=== PATIENT | male | born 1940 | race Caucasian/White ===

== ENCOUNTER 2020-09-07 14:16 | Inpatient (IN) | payer MEDICARE, OTHER ==
[2020-08-31 13:31] LABS: BASOPHILS # (AUTO) 0.1 X10'3 (0-0.2); BASOPHILS % (AUTO) 1.2 % (0-1); EOSINOPHILS # (AUTO) 0.1 X10'3 (0-0.9); HEMATOCRIT 46.5 % (42.0-52.0); HEMOGLOBIN 15.7 g/dl (14.0-17.9); LYMPHOCYTES # (AUTO) 1.4 X10'3 (1.1-4.8); LYMPHOCYTES % (AUTO) 14.6 % (21-51); MEAN CORPUSCULAR HGB CONC 33.8 g/dL (33.0-36.5); MEAN CORPUSCULAR VOLUME 106.4 FL (78-98); MEAN PLATELET VOLUME 7.1 FL (7.4-10.4); MONOCYTES # (AUTO) 0.7 X10'3 (0-0.9); MONOCYTES % (AUTO) 7.3 % (2-12); NEUTROPHILS # (AUTO) 7.1 X10'3 (1.8-7.7); NEUTROPHILS % (AUTO) 75.9 % (42-75); PLATELET COUNT 290 X10'3 (140-440); RED BLOOD COUNT 4.36 X10'6 (4.70-6.10); RED CELL DISTRIBUTION WIDTH 13.9 % (11.5-14.5); WHITE BLOOD COUNT 9.3 X10'3 (4.5-11.0)
[2020-09-01 09:00] LABS: ALBUMIN 3.4 G/DL (3.4-5.0); BLOOD UREA NITROGEN 13 MG/DL (7-18); BUN/CREATININE RATIO 13.3 (5.4-32.0); CALCIUM 9.2 MG/DL (8.5-10.1); CREATININE 0.98 MG/DL (0.60-1.10); TOTAL CARBON DIOXIDE 31.4 MMOL/L (24-32); eGFR 74 ML/MIN
[2020-09-01 09:04] LABS: PRE OP INR 1.1 INR; PRE OP PROTIME 11.4 SECONDS (9.0-12.0)
[2020-09-01 09:11] LABS: PRE OP GLUCOSE 205 MG/DL (70-104)
[2020-09-01 09:14] LABS: CHLORIDE 100 MMOL/L (99-107); PRE OP ANION GAP 7 (8-16); PRE OP POTASSIUM 4.5 MMOL/L (3.4-5.1); PRE OP SODIUM 138 MMOL/L (135-145)
[~2020-09-07] VITALS: Ht 180.3 cm; Wt 146.7 kg
[2020-09-07] VITALS (14 sets, daily range): BP systolic 131–157; BP diastolic 60–86
[~2020-09-07 14:16] MED LIST: ALBU18HF2 IH; DABI150C PO; FOLI-43 PO; FURO80TA3 PO; GABA-338 PO; HYDR1TAB69 PO; LEVO75TA PO; LOP25T PO; METH2.5T55 PO; POTA10TA19 PO
[2020-09-07] MEDS ORDERED: LORazepam 0.5 MG tablet PO PRN (14:40)
[2020-09-07] MEDS ORDERED: diphenhydrAMINE 25mg capsule PO PRN (14:40)
[2020-09-07] MEDS ORDERED: APIX5TAB3 PO (15:27)
[2020-09-07] MEDS ORDERED: FURO-149 PO (15:28)
[2020-09-07] MEDS ORDERED: LEVO88TA2 PO (15:28)
[2020-09-07] MEDS ORDERED: ROSU20TA2 PO (15:30)
[2020-09-07] MEDS: normal saline 1,000 ML IV SCH ×2 (15:45→23:47)
[2020-09-07] MEDS ORDERED: LIDOcaine 1% (10mg/ml)w/preservative injection 20ml MDV ONE (16:22)
[2020-09-07] MEDS ORDERED: heparin 1,000 UNITS/NS 500ml 500 ML ONE (16:22)
[2020-09-07] MEDS ORDERED: heparin 1,000unit/ml 10ml vial 10 ML ONE (16:22)
[2020-09-07] MEDS ORDERED: iohexol 350MG/ML 100ml bottle IV ONE (16:22)
[2020-09-07] MEDS ORDERED: atropine 0.1mg/ml 10ml syringe ONE (16:53)
[2020-09-07] MEDS ORDERED: phenylephrine 10mg/ml inj. ONE (16:53)
[2020-09-07] MEDS ORDERED: DOPamine 400mg/D5W 250ml 250 ML IV ONE (16:55)
[2020-09-07] MEDS ORDERED: clopidogrel 300mg tablet ONE (17:21)
[2020-09-07] MEDS ORDERED: proCHLORperazine 10 MG/2 ml inj IV PRN (18:00)
[2020-09-07] MEDS ORDERED: [UNRECOGNIZED DRUG - OTHER] PO PRN (18:00)
[2020-09-07] MEDS ORDERED: ACETAMINOPHEN PO PRN (18:00)
[2020-09-07] MEDS ORDERED: HYDROcodone/acetaminophen 10/325mg tab PO PRN (18:00)
[2020-09-07] MEDS ORDERED: ondansetron/PF 4mg/2ml inj IV PRN (18:00)
[2020-09-07] MEDS ORDERED: HYDROcodone/acetaminophen 5mg/325mg tablet PO PRN (18:00)
[2020-09-07] MEDS ORDERED: nitroGLYCERIN 0.4mg SUBLingual tab SL PRN (18:00)
[2020-09-07] MEDS ORDERED: HYDROCODONE BIT PO PRN (18:00)
[2020-09-07] MEDS ORDERED: OXAZEpam 15mg capsule PO PRN (18:00)
[2020-09-07] MEDS ORDERED: acetaminophen 325mg tablet PO PRN (18:00)
--- NOTE | 2020-09-07 18:40 | NUR ---
Problems reprioritized. Patient report given, questions answered & plan of care reviewed with HAYDEN Jackson, pt will be going to room#3018G shortly.
--- NOTE | 2020-09-07 19:10 | NUR ---
pt in room 3013B, Bela MOHRg CDI, pt is in stable condition and in no distress at this time, HAYDEN Jackson at pt's bedside.
[2020-09-07] MEDS: apixaban 5mg tablet PO SCH (20:40)
[2020-09-07] MEDS: gabapentin 300mg capsule PO SCH (20:40)
[2020-09-08 02:00] VITALS: BP 121/69
--- NOTE | 2020-09-08 06:00 | NUR ---
Patient in room PCU 3013. I have received report from Manuel BLAKE and had the opportunity to ask questions and assume patient care. Patient awake and oriented, offers no complaints, will continue to monitor.
[2020-09-08 07:00] VITALS: BP 110/68
[2020-09-08 07:31] LABS: ALANINE AMINOTRANSFERASE 14 U/L (12-78); ALBUMIN 2.7 G/DL (3.4-5.0); ALBUMIN/GLOBULIN RATIO 0.6 (1.1-1.5); ALKALINE PHOSPHATASE 66 IU/L (46-116); ANION GAP 7 (8-16); ASPARTATE AMINO TRANSFERASE 12 U/L (10-37); BLOOD UREA NITROGEN 12 MG/DL (7-18); BUN/CREATININE RATIO 15.6 (5.4-32.0); CALCIUM 8.2 MG/DL (8.5-10.1); CHLORIDE 103 MMOL/L (99-107); CHOL/HDL RATIO 4.2 (0.00-4.99); CHOLESTEROL 190 MG/DL (0-200); CREATININE 0.77 MG/DL (0.60-1.10); GLUCOSE 126 MG/DL (70-104); HDL CHOLESTEROL 45 MG/DL (35-60); LDL CHOLESTEROL 128 MG/DL (50-100); SODIUM 140 MMOL/L (135-145); TOTAL CARBON DIOXIDE 30.2 MMOL/L (24-32); TRIGLYCERIDES 133 MG/DL (20-135); eGFR > 90 ML/MIN
[2020-09-08] MEDS ORDERED: potassium Cl 20 mEq SR tablet PO SCH (08:00)
[2020-09-08] MEDS ORDERED: atorvastatin 20mg tablet PO SCH (08:00)
[2020-09-08] MEDS ORDERED: clopidogrel 75mg tablet PO SCH (08:00)
[2020-09-08] MEDS ORDERED: folic acid 1mg tablet PO SCH (08:00)
[2020-09-08] MEDS ORDERED: furosemide 40mg tablet PO SCH (08:00)
[2020-09-08] MEDS ORDERED: levoTHYROXINE 88mcg tablet PO SCH (08:00)
[2020-09-08] MEDS: gabapentin 300mg capsule PO SCH (08:42)
[2020-09-08] MEDS: apixaban 5mg tablet PO SCH (08:42)
[2020-09-08] MEDS: normal saline 1,000 ML IV SCH (10:40)
[2020-09-08] MEDS ORDERED: OMEP-50 PO (10:58)
[2020-09-08] MEDS ORDERED: CLOP75TA34 PO (10:58)
[2020-09-08] MEDS ORDERED: furosemide 40mg tablet PO PRN (11:02)
[2020-09-08] MEDS ORDERED: potassium Cl 20 mEq SR tablet PO PRN (11:03)
--- NOTE | 2020-09-08 12:45 | NUR ---
Patient was discharged home at 1230. Patient reviewed packet prior to singing and being sent with patient. Pt was extremely rude and yelling about discharge and trying to glover the RN as I was educating him on his discharge. Patient collected all his own belongings, PIV was removed, pt removed tele monitor. Patient declined wheelchair and left via private vehicle with his .
[2020-09-09] MEDS ORDERED: levoTHYROXINE 125mcg tablet PO SCH (07:00)
== END 2020-09-08 12:29 | disposition home or self-care (01) | DRG 35 ==
LOC: SSTAY O 14:16 → ED HOLD 20:16 → PCU 3S 20:30
PROVIDERS: ADMIT Internal Medicine Interventional Cardiology; ATTEND Internal Medicine Interventional Cardiology
PROC: 037M3DZ Dilation of Right External Carotid Artery with Intraluminal Device, Percutaneous Approach (ICD-10-PCS; principal; 2020-09-07)
DX: I65.23 Occlusion and stenosis of bilateral carotid arteries (principal); Z68.42 Body mass index [BMI] 45.0-49.9, adult; I50.22 Chronic systolic (congestive) heart failure; I48.0 Paroxysmal atrial fibrillation; G47.33 Obstructive sleep apnea (adult) (pediatric); E66.01 Morbid (severe) obesity due to excess calories; E03.9 Hypothyroidism, unspecified; I27.20 Pulmonary hypertension, unspecified; I36.1 Nonrheumatic tricuspid (valve) insufficiency; I35.1 Nonrheumatic aortic (valve) insufficiency; E78.5 Hyperlipidemia, unspecified
CPT/HCPCS: 36415; 37215; 80048; 80053; 80061; 85025; 85610; 85730; 93005; A4620; C1725; C1760; C1769; C1876; C1884; C1887; C1894; G0378; J0461; J1265; J1644; J2001; J2370; J7030; Q0163; Q9967

== ENCOUNTER 2020-09-08 12:44 | Emergency (ER) | payer MEDICARE, OTHER ==
[~2020-09-08] VITALS: Ht 180.3 cm; Wt 143.2 kg
[~2020-09-08 12:44] MED LIST changes: -ALBU18HF2 IH; +APIX5TAB3 PO; +CLOP75TA34 PO; -DABI150C PO; +FURO-149 PO; -FURO80TA3 PO; -LEVO75TA PO; +LEVO88TA2 PO; -LOP25T PO; +OMEP-50 PO; +ROSU20TA2 PO
[2020-09-08 13:14] VITALS: BP 120/72
[2020-09-08] MEDS ORDERED: LIDOcaine 1% W/epiNEPHrine 1:200,000 10ml vial IJ ONE (14:55)
== END 2020-09-08 15:55 | disposition home or self-care (01) ==
LOC: ER 12:44
DX: S81.812A Laceration without foreign body, left lower leg, initial encounter (principal); I48.91 Unspecified atrial fibrillation; Z86.73 Personal history of transient ischemic attack (TIA), and cerebral infarction without residual deficits; Z98.890 Other specified postprocedural states; Z79.899 Other long term (current) drug therapy; W45.8XXA Other foreign body or object entering through skin, initial encounter; Y93.89 Activity, other specified; Y92.89 Other specified places as the place of occurrence of the external cause; Y99.8 Other external cause status
CPT/HCPCS: 12002; 12032; 99282; 99283; 99284

== ENCOUNTER 2023-10-17 12:03 | Day surgery (SDC) | payer MEDICARE, OTHER ==
[2023-10-13 11:00] LABS: BASOPHILS # (AUTO) 0.1 X10'3 (0-0.2); BASOPHILS % (AUTO) 1.1 % (0-1); EOSINOPHILS # (AUTO) 0.1 X10'3 (0-0.9); EOSINOPHILS % (AUTO) 0.8 % (0-6); HEMATOCRIT 44.7 % (42.0-52.0); HEMOGLOBIN 14.8 g/dl (14.0-17.9); LYMPHOCYTES # (AUTO) 1.5 X10'3 (1.1-4.8); LYMPHOCYTES % (AUTO) 20.3 % (21-51); MEAN CORPUSCULAR HEMOGLOBIN 34.6 PG (27.0-31.0); MEAN CORPUSCULAR VOLUME 104.7 FL (78-98); MEAN PLATELET VOLUME 6.8 FL (7.4-10.4); MONOCYTES # (AUTO) 0.4 X10'3 (0-0.9); MONOCYTES % (AUTO) 5.8 % (2-12); NEUTROPHILS # (AUTO) 5.2 X10'3 (1.8-7.7); PLATELET COUNT 224 X10'3 (140-440); RED BLOOD COUNT 4.27 X10'6 (4.70-6.10); RED CELL DISTRIBUTION WIDTH 14.5 % (11.5-14.5); WHITE BLOOD COUNT 7.3 X10'3 (4.5-11.0)
[2023-10-13 11:36] LABS: ALBUMIN 2.7 G/DL (3.4-5.0); ANION GAP 11 (8-16); BLOOD UREA NITROGEN 15 MG/DL (7-18); BUN/CREATININE RATIO 14.2 (10.0-20.0); CALCIUM 8.9 MG/DL (8.5-10.1); CHLORIDE 105 MMOL/L (99-107); CHOL/HDL RATIO 3.1 (0.00-4.99); CHOLESTEROL 147 MG/DL (0-200); CREATININE 1.06 MG/DL (0.60-1.10); GLUCOSE 158 MG/DL (70-104); HDL CHOLESTEROL 47 MG/DL (35-60); LDL CHOLESTEROL 90 MG/DL (50-100); POTASSIUM 4.1 MMOL/L (3.5-5.1); SODIUM 144 MMOL/L (135-145); TRIGLYCERIDES 89 MG/DL (20-135); eGFR 67 ML/MIN
[2023-10-13 11:49] LABS: APTT 31 SECONDS (22-32); INR 1.1 INR; PROTHROMBIN TIME 11.4 SECONDS (9.0-12.0)
[2023-10-17] VITALS (10 sets, daily range): BP systolic 113–146; BP diastolic 69–88; PULSE 78–92; RESP 14–16; TEMP 97.6; O2SAT 93–97
[~2023-10-17] VITALS: Ht 180.3 cm; Wt 123.5 kg
[~2023-10-17 12:03] MED LIST changes: +LIDOcaine 1% (10mg/ml) 2ml vial ONE; -OMEP-50 PO; +OMEP20CA16 PO; +POTA-192 PO; -POTA10TA19 PO; -ROSU20TA2 PO; +fentaNYL/PF 50MCG/1 ML 2ML syringe ONE; +heparin 1,000 UNITS/NS 500ml 0 ML ONE; +heparin 1,000unit/ml 10ml vial 0 ML ONE; +iohexol 350MG/ML 100ml bottle IV ONE; +midazolam 1 mg/ML 2ml injection ONE; +verapamil 2.5 mg/ml inj IV ONE
[2023-10-17] MEDS ORDERED: nitroGLYCERIN 500mcg/5mL D5W 5 ML IV ONE ×2 (12:09→13:33)
[2023-10-17] MEDS ORDERED: LORazepam 0.5 MG tablet PO PRN (12:45)
[2023-10-17] MEDS ORDERED: normal saline 1,000 ML IV SCH (12:45)
[2023-10-17] MEDS ORDERED: diphenhydrAMINE 25mg capsule PO PRN (12:45)
[2023-10-17] MEDS ORDERED: PRE5T PO (13:08)
[2023-10-17] MEDS ORDERED: METO-384 PO (13:08)
[2023-10-17] MEDS ORDERED: LIDOcaine 1% (10mg/ml) 2ml vial ONE (13:32)
[2023-10-17] MEDS ORDERED: verapamil 2.5 mg/ml inj IV ONE (13:32)
[2023-10-17] MEDS ORDERED: heparin 1,000unit/ml 10ml vial 10 ML ONE (13:32)
[2023-10-17] MEDS ORDERED: iohexol 350MG/ML 100ml bottle IV ONE (13:32)
[2023-10-17] MEDS ORDERED: midazolam 1 mg/ML 2ml injection ONE (13:32)
[2023-10-17] MEDS ORDERED: fentaNYL/PF 50MCG/1 ML 2ML syringe ONE (13:32)
[2023-10-17] MEDS ORDERED: LIDOcaine 1% 30ml preserv. free vial ONE (13:57)
[2023-10-17] MEDS ORDERED: phenylephrine 10mg/ml inj. -priapism dosing ONE (14:09)
[2023-10-17] MEDS ORDERED: HYDROcodone/acetaminophen 10/325mg tab PO PRN (15:20)
[2023-10-17] MEDS ORDERED: HYDROcodone/acetaminophen 5mg/325mg tablet PO PRN (15:20)
[2023-10-18 06:21] LABS: ISTAT HGB MIX 13.6 g/dl (14.0-17.9); ISTAT HGB MIX 14.3 g/dl (14.0-17.9); ISTAT Hct MIX 40 %PCV (42-52); ISTAT Hct MIX 42 %PCV (42-52); ISTAT O2 SATURATION MIX VENOUS 51 % (60-80); ISTAT O2 SATURATION MIX VENOUS 86 % (60-80); ISTAT SOURCE BLNK; ISTAT SOURCE VEN
== END 2023-10-17 17:40 | disposition home or self-care (01) ==
LOC: SSTAY O 12:03
PROVIDERS: ATTEND Student in an Organized Health Care Education/Training Program
DX: I08.3 Combined rheumatic disorders of mitral, aortic and tricuspid valves (principal); I25.10 Atherosclerotic heart disease of native coronary artery without angina pectoris; I11.0 Hypertensive heart disease with heart failure; E78.5 Hyperlipidemia, unspecified; E66.01 Morbid (severe) obesity due to excess calories; Z68.38 Body mass index [BMI] 38.0-38.9, adult; I65.21 Occlusion and stenosis of right carotid artery; I48.0 Paroxysmal atrial fibrillation; G47.33 Obstructive sleep apnea (adult) (pediatric); M06.9 Rheumatoid arthritis, unspecified; I27.20 Pulmonary hypertension, unspecified; E03.9 Hypothyroidism, unspecified; J44.9 Chronic obstructive pulmonary disease, unspecified; Z88.8 Allergy status to other drugs, medicaments and biological substances; Z86.718 Personal history of other venous thrombosis and embolism; Z79.01 Long term (current) use of anticoagulants; Z79.899 Other long term (current) drug therapy
CPT/HCPCS: 36415; 80048; 80061; 82803; 85014; 85025; 85610; 85730; 93005; 93456; 99152; J1644; J2250; J2370; J3010; J3490; J7030; Q9967; A6258; A6402; C1751; C1894

== ENCOUNTER → 2023-10-27 | Outpatient (CLI) | payer MEDICARE, OTHER ==
[~2023-10-27] MED LIST changes: -CLOP75TA34 PO; -HYDR1TAB69 PO; +IODIXANOL 320 MG/ML INFUS..BTL 100ML IV ONE; -LIDOcaine 1% (10mg/ml) 2ml vial ONE; +METO-384 PO; -POTA-192 PO; +PRE5T PO; -fentaNYL/PF 50MCG/1 ML 2ML syringe ONE; -heparin 1,000 UNITS/NS 500ml 0 ML ONE; -heparin 1,000unit/ml 10ml vial 0 ML ONE; -iohexol 350MG/ML 100ml bottle IV ONE; -midazolam 1 mg/ML 2ml injection ONE; -verapamil 2.5 mg/ml inj IV ONE
[2023-10-27 11:50] LABS: BASOPHILS % (AUTO) 0.6 % (0-1); EOSINOPHILS # (AUTO) 0.1 X10'3 (0-0.9); EOSINOPHILS % (AUTO) 1.1 % (0-6); HEMOGLOBIN 14.6 g/dl (14.0-17.9); LYMPHOCYTES # (AUTO) 0.9 X10'3 (1.1-4.8); LYMPHOCYTES % (AUTO) 16.4 % (21-51); MEAN CORPUSCULAR HEMOGLOBIN 35.2 PG (27.0-31.0); MEAN CORPUSCULAR VOLUME 103.6 FL (78-98); MEAN PLATELET VOLUME 7.2 FL (7.4-10.4); MONOCYTES # (AUTO) 0.3 X10'3 (0-0.9); MONOCYTES % (AUTO) 4.5 % (2-12); NEUTROPHILS # (AUTO) 4.4 X10'3 (1.8-7.7); NEUTROPHILS % (AUTO) 77.4 % (42-75); PLATELET COUNT 216 X10'3 (140-440); RED BLOOD COUNT 4.15 X10'6 (4.70-6.10); RED CELL DISTRIBUTION WIDTH 14.6 % (11.5-14.5); WHITE BLOOD COUNT 5.7 X10'3 (4.5-11.0)
[2023-10-27 11:59] LABS: APTT 33 SECONDS (22-32); PROTHROMBIN TIME 11.1 SECONDS (9.0-12.0)
[2023-10-27 12:02] LABS: ALANINE AMINOTRANSFERASE 21 U/L (12-78); ALBUMIN 2.7 G/DL (3.4-5.0); ALBUMIN/GLOBULIN RATIO 0.5 (1.1-1.5); ALKALINE PHOSPHATASE 119 IU/L (46-116); ANION GAP 6 (8-16); ASPARTATE AMINO TRANSFERASE 21 U/L (10-37); BILIRUBIN,TOTAL 0.8 MG/DL (0.1-1.0); BLOOD UREA NITROGEN 13 MG/DL (7-18); BUN/CREATININE RATIO 12.1 (10.0-20.0); CALCIUM 8.7 MG/DL (8.5-10.1); CHLORIDE 103 MMOL/L (99-107); CREATININE 1.07 MG/DL (0.60-1.10); GLUCOSE 156 MG/DL (70-104); SODIUM 140 MMOL/L (135-145); TOTAL CARBON DIOXIDE 31.2 MMOL/L (24-32); TOTAL PROTEIN 7.9 G/DL (6.4-8.2); eGFR 66 ML/MIN
[2023-10-27 12:08] LABS: POTASSIUM 4.1 MMOL/L (3.5-5.1)
== END | disposition home or self-care (01) ==
LOC: 64 CT 11:03
PROVIDERS: ATTEND Internal Medicine Cardiovascular Disease
DX: S22.42XA Multiple fractures of ribs, left side, initial encounter for closed fracture (principal); I51.7 Cardiomegaly; I35.0 Nonrheumatic aortic (valve) stenosis; R06.02 Shortness of breath; I65.29 Occlusion and stenosis of unspecified carotid artery; I70.0 Atherosclerosis of aorta; J98.4 Other disorders of lung; K86.89 Other specified diseases of pancreas; M47.814 Spondylosis without myelopathy or radiculopathy, thoracic region; X58.XXXA Exposure to other specified factors, initial encounter; Y93.89 Activity, other specified; Y92.89 Other specified places as the place of occurrence of the external cause; Y99.8 Other external cause status
CPT/HCPCS: 36415; 71046; 71275; 74174; 75572; 80053; 85025; 85610; 85730; J3490; Q9967

== ENCOUNTER 2023-11-06 05:30 | Inpatient (IN) | payer MEDICARE, OTHER ==
[2023-11-01 13:14] LABS: BILIRUBIN,URINE NEGATIVE (Neg); CLARITY,URINE CLEAR (Clear); COLOR,URINE YELLOW (Yellow); GLUCOSE, URINE NEGATIVE (Neg); KETONES,URINE NEGATIVE (Neg); LEUKOCYTE ESTERASE ,URINE NEGATIVE (Neg); NITRITES, URINE NEGATIVE (Neg); OCCULT BLOOD,URINE TRACE-INTACT (Neg); PROTEIN,URINE NEGATIVE (Neg); UROBILINOGEN,URINE >=8.0 E.U/dL (0.2-1.0)
[2023-11-01 13:15] LABS: UA COLLECTION TYPE CLN CATCH MIDSTREAM
[2023-11-01 13:19] LABS: BASOPHILS % (AUTO) 0.4 % (0-1); EOSINOPHILS % (AUTO) 0.2 % (0-6); LYMPHOCYTES # (AUTO) 1.2 X10'3 (1.1-4.8); LYMPHOCYTES % (AUTO) 12.5 % (21-51); MEAN CORPUSCULAR HEMOGLOBIN 34.5 PG (27.0-31.0); MEAN CORPUSCULAR HGB CONC 33.1 g/dL (33.0-36.5); MEAN CORPUSCULAR VOLUME 104.3 FL (78-98); MEAN PLATELET VOLUME 7.1 FL (7.4-10.4); MONOCYTES # (AUTO) 0.7 X10'3 (0-0.9); MONOCYTES % (AUTO) 7.4 % (2-12); NEUTROPHILS # (AUTO) 7.8 X10'3 (1.8-7.7); NEUTROPHILS % (AUTO) 79.5 % (42-75); PRE OP HEMATOCRIT 43.8 % (42.0-52.0); PRE OP HEMOGLOBIN 14.5 g/dL (14.0-17.9); PRE OP PLATELET COUNT 242 X10'3 (140-440); PRE OP WHITE BLOOD COUNT 9.8 10'3 (4.8-10.8)
[2023-11-01 13:20] LABS: BACTERIA,URINE NONE SEEN /HPF (Neg); RBC,URINE 0-2 /HPF (0-2); SQUAMOUS EPITHELIAL CELL,UR FEW /LPF (FEW); WBC,URINE NONE SEEN /HPF (0-4)
[2023-11-01 13:51] LABS: PRE OP INR 1.1 INR; PRE OP PROTIME 11.5 SECONDS (9.0-12.0)
[2023-11-01 13:56] LABS: ALBUMIN 2.8 G/DL (3.4-5.0); ALBUMIN/GLOBULIN RATIO 0.5 (1.1-1.5); ALKALINE PHOSPHATASE 146 IU/L (46-116); BLOOD UREA NITROGEN 15 MG/DL (7-18); CALCIUM 8.7 MG/DL (8.5-10.1); CHLORIDE 101 MMOL/L (99-107); PRE OP ALT 19 U/L (30-65); PRE OP ANION GAP 6 (8-16); PRE OP AST 20 U/L (10-37); PRE OP BILIRUB, TOTAL 0.8 MG/DL (0.0-1.0); PRE OP GLUCOSE 112 MG/DL (70-104); PRE OP POTASSIUM 4.3 MMOL/L (3.4-5.1); PRE OP SODIUM 138 MMOL/L (135-145); eGFR 72 ML/MIN
[2023-11-01 13:59] LABS: HEMOGLOBIN A1C 6.4 % (4.5-6.2)
[2023-11-01 14:29] VITALS: PULSE 75; RESP 16; O2SAT 98
[2023-11-01] MEDS: albuterol 2.5 MG/3 ML nebule NEB ONE (14:42)
[2023-11-06] VITALS (18 sets, daily range): BP systolic 92–137; BP diastolic 35–83; PULSE 71–99; RESP 14–31; TEMP 97; O2SAT 95–100
[~2023-11-06] VITALS: Ht 167.6 cm; Wt 126.0 kg
[~2023-11-06 05:30] MED LIST changes: -IODIXANOL 320 MG/ML INFUS..BTL 100ML IV ONE; +Insulin Reg/NS 100units/100mL 100 ML IV SCH; +LEVO125T PO; -LEVO88TA2 PO; +dextrose 50%-water 50ml dispensing syringe IV PRN; +insulin glargine (Lantus) pen - multi-dose SQ PRN
[2023-11-06] MEDS: ceFAZolin inj. 3,000 MG in normal saline 100ml IV soln 100 ML IV ONE (05:30)
[2023-11-06] MEDS ORDERED: heparin 10,000 units/1 ML INJ ONE (06:27)
[2023-11-06] MEDS ORDERED: ceFAZolin 1000mg inj ONE ×3 (06:27→14:25)
[2023-11-06] MEDS: famotidine 20mg tablet PO ONE (06:46)
[2023-11-06] MEDS: DOCUMENT DATE & TIME OF BETA-BLOCKER PO ONE (06:46)
[2023-11-06] MEDS: metoprolol tartrate 12.5mg (1/2 tablet) PO ONE (06:46)
[2023-11-06] MEDS: mupirocin 2% nasal ointment 1gm UD NS ONE (06:48)
[2023-11-06] MEDS ORDERED: MIDAZolam 1mg/ml 10ml vial ONE (07:30)
[2023-11-06] MEDS ORDERED: SUfentanil 50mcg/ml 1ml amp IV ONE (07:32)
[2023-11-06 07:35] LABS: ABG BASE EXCESS 3.5 mmol/L (-2.0-2.0); ABG HCO3 28.7 mmol/L (22.0-26.0); ABG OXYGEN SATURATION 95.6 % (94-97); ABG PCO2 (T) 45.6 mmHg (35.0-48.0); ABG PH (T) 7.417 (7.340-7.440); ABG PO2 (T) 77.4 mmHg (75.0-100.0); ALLEN'S TEST POSITIVE; FCOHb 0.4 % (0.0-3.9); FHHb 4.4 % (0.0-5.0); FMetHb 0.2 % (0.0-1.5); MODE ROOM AIR; TOTAL HEMOGLOBIN 15.2 G/dl (14.0-17.9)
[2023-11-06] MEDS: VANCOMYCIN 1,500MG inj. 1,500 MG in normal saline 500ml IV soln 300 ML IV ONE (07:37)
[2023-11-06] MEDS ORDERED: isoflurane 100ml inhalation liquid IH ONE (07:41)
[2023-11-06] MEDS: LORazepam 2 mg/ml vial IV ONE (07:47)
[2023-11-06] MEDS ORDERED: potassium Cl 2 mEq/ml inj IV ONE (08:00)
[2023-11-06 08:37] LABS: ABG BASE EXCESS 0.4 mmol/L (-2.0-2.0); ABG HCO3 24.4 mmol/L (22.0-26.0); ABG OXYGEN SATURATION 99.6 % (94-97); ABG PCO2 37.4 mmHg (35.0-48.0); ABG PH 7.433 (7.340-7.440); ABG PO2 531.3 mmHg (75.0-100.0); CL (ABG) 104 mmol/L (99-107); FCOHb 0.3 % (0.0-3.9); FHHb 0.4 % (0.0-5.0); FMetHb 0.1 % (0.0-1.5); FO2Hb 99.2 % (94-97); GLUCOSE (ABG) 123 mg/dl (70-104); IONIZED CA (ABG) 1.13 mmol/L (1.10-1.30); K (ABG) 3.5 mmol/L (3.5-5.1); TOTAL HEMOGLOBIN 13.8 G/dl (14.0-17.9)
[2023-11-06] MEDS ORDERED: rocuronium 10mg/ml inj IV ONE ×5 (08:56→12:34)
[2023-11-06] MEDS ORDERED: LIDOcaine 2% (20mg/ml) 5ml vial ONE (08:57)
[2023-11-06] MEDS ORDERED: dexamethasone sod phosphate 4mg/ml inj. ONE (08:57)
[2023-11-06] MEDS ORDERED: 0.9 % SODIUM CHLORIDE 10 ML VIAL ONE (08:57)
[2023-11-06] MEDS ORDERED: ondansetron/PF 4mg/2ml inj ONE (08:57)
[2023-11-06] MEDS ORDERED: phenylephrine 10mg/ml inj. -priapism dosing ONE (08:57)
[2023-11-06] MEDS ORDERED: propofol inj 20 ML IV ONE (08:57)
[2023-11-06] MEDS ORDERED: atropine 0.1mg/ml 10ml syringe ONE (09:00)
[2023-11-06] MEDS: BUPIVACAINE liposomal/PF 13.3 MG/ML vial IM ONE (09:04)
[2023-11-06] MEDS: BUPIVAcaine/PF 2.5mg/ml (0.25%) 10ml vial ONE (09:05)
[2023-11-06] MEDS: epiNEPHrine 1 mg/ml inj ONE (09:05)
[2023-11-06] MEDS: heparin 10,000 units/1 ML INJ IR ONE (09:05)
[2023-11-06] MEDS: papaverine 30 mg/ml 2ml inj. IA ONE (09:05)
[2023-11-06] MEDS ORDERED: gelatin sponge, absorbable (Gelfoam 100) sponge TP ONE (09:18)
[2023-11-06] MEDS ORDERED: midazolam 1 mg/ML 2ml injection IV PRN (10:30)
[2023-11-06] MEDS ORDERED: FENTANYL-0.9 % NACL/PF 100 ML IV PRN (10:30)
[2023-11-06] MEDS ORDERED: fentaNYL/PF 50MCG/1 ML 2ML syringe IV PRN (10:30)
[2023-11-06 10:31] LABS: ABG BASE EXCESS 4.9 mmol/L (-2.0-2.0); ABG HCO3 28.9 mmol/L (22.0-26.0); ABG OXYGEN SATURATION 99.6 % (94-97); ABG PCO2 40.2 mmHg (35.0-48.0); ABG PH 7.474 (7.340-7.440); ABG PO2 501.3 mmHg (75.0-100.0); CL (ABG) 102 mmol/L (99-107); FCOHb 0.3 % (0.0-3.9); FHHb 0.4 % (0.0-5.0); FMetHb 0.3 % (0.0-1.5); GLUCOSE (ABG) 134 mg/dl (70-104); IONIZED CA (ABG) 1.01 mmol/L (1.10-1.30); K (ABG) 3.6 mmol/L (3.5-5.1); TOTAL HEMOGLOBIN 11.1 G/dl (14.0-17.9)
[2023-11-06 11:22] LABS: ABG BASE EXCESS VENOUS 3.8 mmol/L (-2.0 - 2.0); ABG HCO3 VENOUS 28.2 mmol/L (21.0-28.0); ABG OXYGEN SATURATION VENOUS 85.9 % (75 - 99 %); ABG PCO2 VENOUS 41.6 mmHg (41.0-54.0); ABG PH (VENOUS) 7.449 (7.310-7.450); ABG PO2 VENOUS 47.8 mmHg (25.0-35.0); CL (ABG) 102 mmol/L (99-107); FCOHb VENOUS 0.3 %; FMetHb VENOUS 0.3 % (0.0 - 0.5); FO2Hb VENOUS 85.4 %; GLUCOSE (ABG) 134 mg/dl (70-104); IONIZED CA (ABG) 1.03 mmol/L (1.10-1.30); K (ABG) 3.8 mmol/L (3.5-5.1)
[2023-11-06 12:12] LABS: ABG BASE EXCESS 4.1 mmol/L (-2.0-2.0); ABG OXYGEN SATURATION 99.2 % (94-97); ABG PCO2 39.7 mmHg (35.0-48.0); ABG PH 7.467 (7.340-7.440); ABG PO2 207.7 mmHg (75.0-100.0); CL (ABG) 103 mmol/L (99-107); FCOHb 0.3 % (0.0-3.9); FHHb 0.8 % (0.0-5.0); FMetHb 0.3 % (0.0-1.5); FO2Hb 98.6 % (94-97); GLUCOSE (ABG) 150 mg/dl (70-104); IONIZED CA (ABG) 1.03 mmol/L (1.10-1.30); K (ABG) 3.6 mmol/L (3.5-5.1); TOTAL HEMOGLOBIN 10.9 G/dl (14.0-17.9)
[2023-11-06] MEDS ORDERED: albumin (Human) 5% 250ml 250 ML IV ONE (12:58)
[2023-11-06 13:27] LABS: ABG BASE EXCESS 2.5 mmol/L (-2.0-2.0); ABG HCO3 27.1 mmol/L (22.0-26.0); ABG OXYGEN SATURATION 99.1 % (94-97); ABG PCO2 41.8 mmHg (35.0-48.0); ABG PH 7.429 (7.340-7.440); CL (ABG) 104 mmol/L (99-107); FCOHb 0.3 % (0.0-3.9); FHHb 0.9 % (0.0-5.0); FMetHb 0.3 % (0.0-1.5); FO2Hb 98.5 % (94-97); GLUCOSE (ABG) 128 mg/dl (70-104); IONIZED CA (ABG) 1.01 mmol/L (1.10-1.30); K (ABG) 4.5 mmol/L (3.5-5.1); TOTAL HEMOGLOBIN 9.4 G/dl (14.0-17.9)
[2023-11-06] MEDS ORDERED: papaverine 30 mg/ml 2ml inj. ONE (14:00)
[2023-11-06 14:26] LABS: ABG HCO3 30.7 mmol/L (22.0-26.0); ABG OXYGEN SATURATION 99.1 % (94-97); ABG PCO2 45.6 mmHg (35.0-48.0); ABG PH 7.446 (7.340-7.440); ABG PO2 292.6 mmHg (75.0-100.0); CL (ABG) 102 mmol/L (99-107); FCOHb 0.3 % (0.0-3.9); FHHb 0.9 % (0.0-5.0); FO2Hb 98.8 % (94-97); GLUCOSE (ABG) 112 mg/dl (70-104); IONIZED CA (ABG) 1.23 mmol/L (1.10-1.30); K (ABG) 4.1 mmol/L (3.5-5.1); TOTAL HEMOGLOBIN 8.7 G/dl (14.0-17.9)
[2023-11-06 15:34] LABS: ABG BASE EXCESS 0.2 mmol/L (-2.0-2.0); ABG HCO3 24.2 mmol/L (22.0-26.0); ABG PCO2 36.6 mmHg (35.0-48.0); ABG PH 7.438 (7.340-7.440); ABG PO2 264.2 mmHg (75.0-100.0); CL (ABG) 106 mmol/L (99-107); FCOHb 0.3 % (0.0-3.9); FMetHb 0.3 % (0.0-1.5); FO2Hb 98.4 % (94-97); GLUCOSE (ABG) 105 mg/dl (70-104); IONIZED CA (ABG) 1.11 mmol/L (1.10-1.30); K (ABG) 3.6 mmol/L (3.5-5.1); TOTAL HEMOGLOBIN 10.8 G/dl (14.0-17.9)
[2023-11-06] MEDS ORDERED: potassium Cl 40MEQ/270ML bag 250 ML IV PRN (16:30)
[2023-11-06] MEDS ORDERED: sodium phosphate inj. 15 MMOL in dextrose 5%-water 250 ML IV PRN (16:30)
[2023-11-06] MEDS ORDERED: ondansetron/PF 4mg/2ml inj IV PRN (16:30)
[2023-11-06] MEDS: Insulin Reg/NS 100units/100mL 100 ML IV SCH (16:30)
[2023-11-06] MEDS ORDERED: sodium phosphate inj. 30 MMOL in dextrose 5%-water 250 ML IV PRN (16:30)
[2023-11-06] MEDS ORDERED: morphine 4 MG/ML inj SYRINge IV PRN (16:30)
[2023-11-06] MEDS ORDERED: Neutra Phos packet PO PRN (16:30)
[2023-11-06] MEDS ORDERED: morphine 2 MG/ML inj. syringe IV PRN (16:30)
[2023-11-06] MEDS ORDERED: normal saline 250ml IV soln 250 ML IV PRN (16:30)
[2023-11-06] MEDS ORDERED: HYDROcodone/acetaminophen 10/325mg tab PO PRN (16:30)
[2023-11-06] MEDS ORDERED: potassium CL 10mEq/100ml bag 100 ML IV PRN (16:30)
[2023-11-06] MEDS ORDERED: mineral oil 133ml enema RC PRN (16:30)
[2023-11-06] MEDS ORDERED: dextrose 50%-water 50ml dispensing syringe IV PRN (16:30)
[2023-11-06] MEDS ORDERED: insulin glargine (Lantus) pen - multi-dose SQ PRN (16:30)
[2023-11-06] MEDS ORDERED: metoclopramide 5 mg/ml inj IV PRN (16:30)
[2023-11-06] MEDS ORDERED: niCARDipine-NS 40mg/200ml IVPB 200 ML IV PRN (16:30)
[2023-11-06] MEDS ORDERED: bisacodyl 10mg suppository rectal RC PRN (16:30)
[2023-11-06] MEDS: sodium chloride 0.45% 1,000 ML IV SCH (16:30)
[2023-11-06] MEDS ORDERED: magnesium 4gm in 100ml NS 100 ML IV PRN (16:30)
[2023-11-06] MEDS ORDERED: potassium Cl 40MEQ/1/2NS 520ml 520 ML IV PRN (16:30)
[2023-11-06] MEDS ORDERED: nitroGLYCERIN-Tridil 50MG/D5W 250 ML IV PRN (16:30)
[2023-11-06] MEDS ORDERED: acetaminophen 325mg tablet PO PRN ×2 (16:30)
[2023-11-06 16:51] LABS: ABG BASE EXCESS -1.2 mmol/L (-2.0-2.0); ABG HCO3 23.2 mmol/L (22.0-26.0); ABG OXYGEN SATURATION 99.8 % (94-97); ABG PCO2 (T) 36.1 mmHg (35.0-48.0); ABG PH (T) 7.422 (7.340-7.440); ABG PO2 (T) 351.9 mmHg (75.0-100.0); FCOHb 0.4 % (0.0-3.9); FHHb 0.2 % (0.0-5.0); FMetHb 0.3 % (0.0-1.5); FO2Hb 99.1 % (94-97); MODE VENT - SIMV; PATIENT TEMPERATURE 36.2; PEEP 5 cm H2O; RESPIRATORY RATE 14 b/min; TIDAL VOLUME 550 mL; TOTAL HEMOGLOBIN 11.8 G/dl (14.0-17.9)
[2023-11-06] MEDS: sodium bicarbonate (8.4%) 1 mEq/ml syringe IV ONE ×2 (16:57→22:01)
[2023-11-06] MEDS: sodium bicarbonate (8.4%) 1 mEq/ml syringe ONE (16:57)
[2023-11-06] MEDS: albumin (Human) 5% 250ml 250 ML IV PRN (17:14)
[2023-11-06] MEDS: ringers solution, lacted 1,000 ML IV SCH (17:20)
[2023-11-06] MEDS: propofol 1000mg/100ml bottle 100 ML IV SCH (17:20)
[2023-11-06 17:21] LABS: BASOPHILS # (AUTO) 0.1 X10'3 (0-0.2); BASOPHILS % (AUTO) 0.5 % (0-1); EOSINOPHILS % (AUTO) 0.1 % (0-6); HEMATOCRIT 32.8 % (42.0-52.0); HEMOGLOBIN 10.9 g/dl (14.0-17.9); LYMPHOCYTES # (AUTO) 0.4 X10'3 (1.1-4.8); LYMPHOCYTES % (AUTO) 1.7 % (21-51); MEAN CORPUSCULAR HEMOGLOBIN 34.7 PG (27.0-31.0); MEAN CORPUSCULAR HGB CONC 33.2 g/dL (33.0-36.5); MEAN CORPUSCULAR VOLUME 104.7 FL (78-98); MEAN PLATELET VOLUME 7.3 FL (7.4-10.4); MONOCYTES # (AUTO) 0.9 X10'3 (0-0.9); MONOCYTES % (AUTO) 4.1 % (2-12); NEUTROPHILS # (AUTO) 21.2 X10'3 (1.8-7.7); NEUTROPHILS % (AUTO) 93.6 % (42-75); PLATELET COUNT 144 X10'3 (140-440); RED BLOOD COUNT 3.13 X10'6 (4.70-6.10); RED CELL DISTRIBUTION WIDTH 14.6 % (11.5-14.5); WHITE BLOOD COUNT 22.7 X10'3 (4.5-11.0)
[2023-11-06] MEDS: DOPamine 400mg/D5W 250ml 250 ML IV PRN (17:35)
[2023-11-06 17:48] LABS: ALANINE AMINOTRANSFERASE 22 U/L (12-78); ALBUMIN 2.4 G/DL (3.4-5.0); ALKALINE PHOSPHATASE 57 IU/L (46-116); ANION GAP 9 (8-16); BILIRUBIN,TOTAL 1.6 MG/DL (0.1-1.0); BLOOD UREA NITROGEN 12 MG/DL (7-18); BUN/CREATININE RATIO 12.2 (10.0-20.0); CALCIUM 7.2 MG/DL (8.5-10.1); CHLORIDE 110 MMOL/L (99-107); CREATININE 0.98 MG/DL (0.60-1.10); GLUCOSE 84 MG/DL (70-104); SODIUM 146 MMOL/L (135-145); TOTAL CARBON DIOXIDE 27.2 MMOL/L (24-32); TOTAL PROTEIN 4.9 G/DL (6.4-8.2); eCRCL 57 ML/MIN; eGFR 73 ML/MIN
[2023-11-06 17:50] LABS: POTASSIUM 3.7 MMOL/L (3.5-5.1)
[2023-11-06 17:59] LABS: MAGNESIUM 3.2 MG/DL (1.5-2.4); THYROID STIMULATING HORMONE 1.24 ulU/ml (0.34-4.50)
[2023-11-06 18:04] LABS: ASPARTATE AMINO TRANSFERASE 53 U/L (10-37); PHOSPHORUS 2.4 MG/DL (2.3-4.5)
[2023-11-06 18:17] LABS: APTT 33 SECONDS (22-32); INR 1.3 INR; PROTHROMBIN TIME 13.6 SECONDS (9.0-12.0)
[2023-11-06 19:09] LABS: ABG BASE EXCESS -1.4 mmol/L (-2.0-2.0); ABG HCO3 21.9 mmol/L (22.0-26.0); ABG OXYGEN SATURATION 96.7 % (94-97); ABG PCO2 (T) 30.3 mmHg (35.0-48.0); ABG PH (T) 7.472 (7.340-7.440); ABG PO2 (T) 78.9 mmHg (75.0-100.0); FCOHb 0.6 % (0.0-3.9); FHHb 3.3 % (0.0-5.0); FMetHb 0.3 % (0.0-1.5); FO2Hb 95.8 % (94-97); MODE VENT - SIMV; PATIENT TEMPERATURE 35.8; PEEP 5 cm H2O; RESPIRATORY RATE 14 b/min; TIDAL VOLUME 550 mL
[2023-11-06] MEDS: ipratropium/albuterol 3ml nebule NEB SCH (19:15)
[2023-11-06] MEDS: HYDROmorphone inj. 0.5 MG/0.5 ML DISP.SYRIN IV PRN (19:43)
[2023-11-06] MEDS: acetaminophen 1,000mg/100ml IV 100 ML IV ONE (19:43)
[2023-11-06] MEDS ORDERED: vancomycin/NS 1 GM ADD-VANTAGE 250 ML IV SCH (20:00)
[2023-11-06 20:13] LABS: FIBRINOGEN 187 MG/DL (177-424)
[2023-11-06] MEDS: dexmedetomidin/NS 400mcg/100ml 100 ML IV PRN (20:17)
[2023-11-06 20:18] LABS: BASOPHILS % (AUTO) 0.1 % (0-1); EOSINOPHILS % (AUTO) 0 % (0-6); HEMATOCRIT 29.8 % (42.0-52.0); HEMOGLOBIN 9.9 g/dl (14.0-17.9); LYMPHOCYTES # (AUTO) 0.5 X10'3 (1.1-4.8); LYMPHOCYTES % (AUTO) 3.3 % (21-51); MEAN CORPUSCULAR HEMOGLOBIN 34.6 PG (27.0-31.0); MEAN CORPUSCULAR HGB CONC 33.3 g/dL (33.0-36.5); MEAN CORPUSCULAR VOLUME 103.7 FL (78-98); MEAN PLATELET VOLUME 7.4 FL (7.4-10.4); MONOCYTES # (AUTO) 0.7 X10'3 (0-0.9); MONOCYTES % (AUTO) 4.6 % (2-12); NEUTROPHILS # (AUTO) 14.8 X10'3 (1.8-7.7); PLATELET COUNT 122 X10'3 (140-440); RED BLOOD COUNT 2.88 X10'6 (4.70-6.10); RED CELL DISTRIBUTION WIDTH 14.5 % (11.5-14.5); WHITE BLOOD COUNT 16.1 X10'3 (4.5-11.0)
[2023-11-06 20:24] LABS: APTT 31 SECONDS (22-32); INR 1.3 INR; PROTHROMBIN TIME 13.1 SECONDS (9.0-12.0)
[2023-11-06 20:28] LABS: ALANINE AMINOTRANSFERASE 14 U/L (12-78); ALBUMIN 2.8 G/DL (3.4-5.0); ALBUMIN/GLOBULIN RATIO 1.1 (1.1-1.5); ALKALINE PHOSPHATASE 63 IU/L (46-116); ANION GAP 11 (8-16); ASPARTATE AMINO TRANSFERASE 54 U/L (10-37); BILIRUBIN,TOTAL 2.8 MG/DL (0.1-1.0); BLOOD UREA NITROGEN 17 MG/DL (7-18); BUN/CREATININE RATIO 16.8 (10.0-20.0); CHLORIDE 106 MMOL/L (99-107); CREATININE 1.01 MG/DL (0.60-1.10); GLUCOSE 188 MG/DL (70-104); MAGNESIUM 2.9 MG/DL (1.5-2.4); PHOSPHORUS 2.9 MG/DL (2.3-4.5); SODIUM 142 MMOL/L (135-145); TOTAL CARBON DIOXIDE 24.7 MMOL/L (24-32); TOTAL PROTEIN 5.3 G/DL (6.4-8.2); eCRCL 52 ML/MIN; eGFR 71 ML/MIN
[2023-11-06] MEDS: atorvastatin 10mg tablet PO SCH (20:36)
[2023-11-06] MEDS: mupirocin 2% nasal ointment 1gm UD NS SCH (20:36)
[2023-11-06] MEDS: potassium Cl 20mEq/100mL bag 100 ML IV PRN (20:36)
[2023-11-06] MEDS: sennosides/docusate sodium tablet PO SCH (20:36)
[2023-11-06] MEDS ORDERED: methylPREDNISolone sod succ/PF 40mg inj. IV ONE (20:58)
[2023-11-06] MEDS: gabapentin 300mg capsule PO SCH (21:00)
[2023-11-06 21:02] LABS: POTASSIUM 3.9 MMOL/L (3.5-5.1)
[2023-11-06] MEDS: CALCIUM GLUC 1gm/50ml NACL,iso 50 ML IV ONE ×2 (21:07→21:24)
[2023-11-06] MEDS: hydrocortisone sod succ/PF 100mg/2ml inj. IV ONE (21:07)
[2023-11-06] MEDS: methylPREDNISolone sod succ 125mg/2ml vial IV ONE (21:09)
[2023-11-06] MEDS ORDERED: NORepinephrine 8mg/ 250ml NS 250 ML IV PRN (21:30)
[2023-11-06] MEDS ORDERED: DOBUTamine-DoBUTrex 500mg/D5W 250 ML IV PRN (21:30)
[2023-11-06 21:40] LABS: ABG BASE EXCESS -3.2 mmol/L (-2.0-2.0); ABG HCO3 21.5 mmol/L (22.0-26.0); ABG OXYGEN SATURATION 94.5 % (94-97); ABG PCO2 (T) 36.3 mmHg (35.0-48.0); ABG PH (T) 7.387 (7.340-7.440); ABG PO2 (T) 71.5 mmHg (75.0-100.0); FCOHb 0.7 % (0.0-3.9); FHHb 5.4 % (0.0-5.0); FMetHb 0.3 % (0.0-1.5); FO2Hb 93.6 % (94-97); MODE VENT - SIMV; PATIENT TEMPERATURE 36.5; PEEP 5 cm H2O; RESPIRATORY RATE 14 b/min; TIDAL VOLUME 550 mL; TOTAL HEMOGLOBIN 11.1 G/dl (14.0-17.9)
[2023-11-06] MEDS: epiNEPHrine inj 5 MG in normal saline 250ml IV soln 245 ML IV PRN (22:38)
[2023-11-06] MEDS ORDERED: HYDROmorphone inj. 0.5 MG/0.5 ML DISP.SYRIN IV PRN (23:55)
[2023-11-07] VITALS (39 sets, daily range): BP systolic 76–120; BP diastolic 41–62; PULSE 90–108; RESP 14–24; O2SAT 13–99
[2023-11-07] MEDS: CALCIUM GLUC 1gm/50ml NACL,iso 50 ML IV ONE ×3 (00:13→02:33)
[2023-11-07] MEDS: acetaminophen 1,000mg/100ml IV 100 ML IV SCH (00:13)
[2023-11-07] MEDS: ceFAZolin/D5W- 1GM premix 50 ML IV SCH (00:13)
[2023-11-07] MEDS: potassium cl 20mEq in 1/2 NS 1,000 ML IV SCH (00:35)
[2023-11-07 01:47] LABS: BASOPHILS % (AUTO) 0.3 % (0-1); EOSINOPHILS % (AUTO) 0 % (0-6); HEMATOCRIT 31.3 % (42.0-52.0); HEMOGLOBIN 10.3 g/dl (14.0-17.9); LYMPHOCYTES # (AUTO) 0.2 X10'3 (1.1-4.8); LYMPHOCYTES % (AUTO) 1.1 % (21-51); MEAN CORPUSCULAR HEMOGLOBIN 34.5 PG (27.0-31.0); MEAN CORPUSCULAR HGB CONC 32.9 g/dL (33.0-36.5); MEAN CORPUSCULAR VOLUME 104.6 FL (78-98); MEAN PLATELET VOLUME 7.6 FL (7.4-10.4); MONOCYTES # (AUTO) 0.5 X10'3 (0-0.9); MONOCYTES % (AUTO) 3.2 % (2-12); NEUTROPHILS # (AUTO) 15.5 X10'3 (1.8-7.7); NEUTROPHILS % (AUTO) 95.4 % (42-75); PLATELET COUNT 155 X10'3 (140-440); RED BLOOD COUNT 2.99 X10'6 (4.70-6.10); RED CELL DISTRIBUTION WIDTH 14.9 % (11.5-14.5); WHITE BLOOD COUNT 16.3 X10'3 (4.5-11.0)
[2023-11-07 01:59] LABS: APTT 27 SECONDS (22-32); INR 1.1 INR
[2023-11-07 02:02] LABS: ALBUMIN 3.2 G/DL (3.4-5.0); ALBUMIN/GLOBULIN RATIO 1.1 (1.1-1.5); ALKALINE PHOSPHATASE 67 IU/L (46-116); ANION GAP 15 (8-16); ASPARTATE AMINO TRANSFERASE 55 U/L (10-37); BILIRUBIN,TOTAL 2.8 MG/DL (0.1-1.0); BLOOD UREA NITROGEN 15 MG/DL (7-18); BUN/CREATININE RATIO 10.3 (10.0-20.0); CALCIUM 7.6 MG/DL (8.5-10.1); CHLORIDE 106 MMOL/L (99-107); CREATININE 1.45 MG/DL (0.60-1.10); GLUCOSE 249 MG/DL (70-104); MAGNESIUM 2.5 MG/DL (1.5-2.4); POTASSIUM 3.6 MMOL/L (3.5-5.1); SODIUM 140 MMOL/L (135-145); TOTAL CARBON DIOXIDE 19.5 MMOL/L (24-32); eCRCL 36 ML/MIN; eGFR 47 ML/MIN
[2023-11-07 03:05] LABS: ALANINE AMINOTRANSFERASE 24 U/L (12-78)
[2023-11-07] MEDS: amiodarone 150mg/dext, iso-os 100 ML IV ONE (03:52)
[2023-11-07 04:01] LABS: ABG BASE EXCESS -6.2 mmol/L (-2.0-2.0); ABG HCO3 18.4 mmol/L (22.0-26.0); ABG OXYGEN SATURATION 97.5 % (94-97); ABG PH (T) 7.363 (7.340-7.440); ABG PO2 (T) 94.1 mmHg (75.0-100.0); FCOHb 0.4 % (0.0-3.9); FHHb 2.5 % (0.0-5.0); FMetHb 0.3 % (0.0-1.5); FO2Hb 96.8 % (94-97); MODE VENT - SIMV; PATIENT TEMPERATURE 36.5; PEEP 5 cm H2O; RESPIRATORY RATE 14 b/min; TIDAL VOLUME 550 mL; TOTAL HEMOGLOBIN 11.1 G/dl (14.0-17.9)
[2023-11-07] MEDS: amiodarone/D5 360MG/200ML BAG 200 ML IV SCH ×2 (04:11→10:00)
[2023-11-07] MEDS: sodium bicarbonate (8.4%) 1 mEq/ml syringe IV ONE ×3 (05:36→05:40)
[2023-11-07] MEDS ORDERED: NORepinephrine 8mg/ 250ml NS 250 ML IV PRN (07:30)
[2023-11-07 07:35] LABS: ABG BASE EXCESS -0.4 mmol/L (-2.0-2.0); ABG HCO3 23.6 mmol/L (22.0-26.0); ABG OXYGEN SATURATION 98.2 % (94-97); ABG PCO2 (T) 35.3 mmHg (35.0-48.0); ABG PO2 (T) 101.8 mmHg (75.0-100.0); FCOHb 0.3 % (0.0-3.9); FHHb 1.8 % (0.0-5.0); FMetHb 0.3 % (0.0-1.5); FO2Hb 97.6 % (94-97); MODE VENT - SIMV/VC; PATIENT TEMPERATURE 36.3; PEEP 5 cm H2O; RESPIRATORY RATE 14 b/min; TIDAL VOLUME 550 mL; TOTAL HEMOGLOBIN 10.9 G/dl (14.0-17.9)
[2023-11-07] MEDS ORDERED: folic acid 1mg tablet PO SCH (08:00)
[2023-11-07] MEDS ORDERED: predniSONE 5mg tablet PO SCH ×2 (08:00)
[2023-11-07] MEDS ORDERED: levoTHYROXINE 125mcg tablet PO SCH (08:00)
[2023-11-07] MEDS ORDERED: metoprolol tartrate 12.5mg (1/2 tablet) PO SCH (08:00)
[2023-11-07 08:19] LABS: ABG HCO3 24.5 mmol/L (22.0-26.0); ABG OXYGEN SATURATION 95.7 % (94-97); ABG PCO2 (T) 38.2 mmHg (35.0-48.0); ABG PH (T) 7.423 (7.340-7.440); ABG PO2 (T) 72.5 mmHg (75.0-100.0); FCOHb 0.1 % (0.0-3.9); FHHb 4.3 % (0.0-5.0); FMetHb 0.3 % (0.0-1.5); FO2Hb 95.3 % (94-97); MODE VENT - CPAP/PS; PATIENT TEMPERATURE 36.4; PEEP 5 cm H2O; TOTAL HEMOGLOBIN 10.7 G/dl (14.0-17.9)
[2023-11-07] MEDS: CALCIUM GLUC 1gm/50ml NACL,iso 100 ML IV ONE ×2 (08:19→08:55)
[2023-11-07] MEDS: gabapentin 300mg capsule PO SCH ×2 (08:44→20:00)
[2023-11-07] MEDS: folic acid 1mg tablet PO SCH (08:44)
[2023-11-07] MEDS: levoTHYROXINE 125mcg tablet PO SCH (08:44)
[2023-11-07] MEDS: aspirin 81mg tab.chew PO SCH (08:44)
[2023-11-07] MEDS: methylPREDNISolone sod succ/PF 40mg inj. IV SCH (08:47)
[2023-11-07] MEDS: furosemide 20 MG/2 ML vial IV ONE (10:00)
[2023-11-07] MEDS: albumin (human) 25% 100 ML IV solution IV ONE (12:06)
[2023-11-07] MEDS: albumin (human) 25% 100ml IV 100 ML IV ONE (12:39)
[2023-11-07 13:08] LABS: ALBUMIN 2.9 G/DL (3.4-5.0); ANION GAP 10 (8-16); BLOOD UREA NITROGEN 16 MG/DL (7-18); BUN/CREATININE RATIO 15.2 (10.0-20.0); CALCIUM 8.3 MG/DL (8.5-10.1); CHLORIDE 108 MMOL/L (99-107); CREATININE 1.05 MG/DL (0.60-1.10); GLUCOSE 185 MG/DL (70-104); SODIUM 145 MMOL/L (135-145); TOTAL CARBON DIOXIDE 26.6 MMOL/L (24-32); eCRCL 50 ML/MIN; eGFR 68 ML/MIN
[2023-11-07 13:55] LABS: ABG BASE EXCESS 0.4 mmol/L (-2.0-2.0); ABG HCO3 24.9 mmol/L (22.0-26.0); ABG OXYGEN SATURATION 97.7 % (94-97); ABG PCO2 (T) 39.1 mmHg (35.0-48.0); ABG PH (T) 7.421 (7.340-7.440); ABG PO2 (T) 97.4 mmHg (75.0-100.0); FCOHb 0.3 % (0.0-3.9); FHHb 2.3 % (0.0-5.0); FLOW 4 L/min; FMetHb 0.3 % (0.0-1.5); FO2Hb 97.1 % (94-97); MODE NASAL CANNULA; PATIENT TEMPERATURE 36.6
[2023-11-07] MEDS: NORepinephrine 8mg/ 250ml NS 250 ML IV PRN (15:23)
[2023-11-07] MEDS: insulin Lispro (HumaLOG) vial - multi-dose SQ SCH (18:54)
[2023-11-07] MEDS: furosemide 20 MG/2 ML vial IV SCH (20:46)
[2023-11-07] MEDS: insulin glargine (Lantus) pen - multi-dose SQ SCH (21:00)
[2023-11-07] MEDS: DOBUTamine-DoBUTrex 500mg/D5W 250 ML IV PRN (21:38)
[2023-11-08] VITALS (34 sets, daily range): BP systolic 83–139; BP diastolic 49–75; PULSE 76–90; RESP 10–26; O2SAT 93–100
[2023-11-08 04:31] LABS: HEMOGLOBIN 9.3 g/dl (14.0-17.9); MEAN CORPUSCULAR HEMOGLOBIN 35.2 PG (27.0-31.0); RED BLOOD COUNT 2.65 X10'6 (4.70-6.10)
[2023-11-08 04:34] LABS: BASOPHILS # (AUTO) 0.1 X10'3 (0-0.2); BASOPHILS % (AUTO) 0.3 % (0-1); EOSINOPHILS % (AUTO) 0 % (0-6); HEMATOCRIT 27.6 % (42.0-52.0); LYMPHOCYTES # (AUTO) 0.4 X10'3 (1.1-4.8); LYMPHOCYTES % (AUTO) 1.9 % (21-51); MEAN CORPUSCULAR HGB CONC 33.8 g/dL (33.0-36.5); MEAN CORPUSCULAR VOLUME 104.3 FL (78-98); MEAN PLATELET VOLUME 8.3 FL (7.4-10.4); MONOCYTES # (AUTO) 1.2 X10'3 (0-0.9); MONOCYTES % (AUTO) 5.5 % (2-12); NEUTROPHILS # (AUTO) 19.9 X10'3 (1.8-7.7); NEUTROPHILS % (AUTO) 92.3 % (42-75); PLATELET COUNT 100 X10'3 (140-440); RED CELL DISTRIBUTION WIDTH 15.5 % (11.5-14.5); WHITE BLOOD COUNT 21.5 X10'3 (4.5-11.0)
[2023-11-08 04:39] LABS: ANION GAP 6 (8-16); BLOOD UREA NITROGEN 18 MG/DL (7-18); BUN/CREATININE RATIO 19.6 (10.0-20.0); CALCIUM 8.2 MG/DL (8.5-10.1); CHLORIDE 106 MMOL/L (99-107); CREATININE 0.92 MG/DL (0.60-1.10); GLUCOSE 217 MG/DL (70-104); MAGNESIUM 2.4 MG/DL (1.5-2.4); PHOSPHORUS 3.3 MG/DL (2.3-4.5); POTASSIUM 4.4 MMOL/L (3.5-5.1); SODIUM 141 MMOL/L (135-145); TOTAL CARBON DIOXIDE 28.6 MMOL/L (24-32); eCRCL 57 ML/MIN; eGFR 79 ML/MIN
[2023-11-08] MEDS: pantoprazole 40mg Tablet.DR PO SCH (08:18)
[2023-11-08] MEDS: HYDROcodone/acetaminophen 10/325mg tab PO PRN (08:19)
[2023-11-08] MEDS: magnesium 2GM in 50ml NS 50 ML IV PRN (08:34)
[2023-11-08] MEDS: albumin (human) 25% 100 ML IV solution IV ONE (08:55)
[2023-11-08] MEDS: predniSONE 5mg tablet PO SCH (09:08)
[2023-11-08] MEDS: amiodarone 200mg tablet PO SCH (09:08)
[2023-11-08] MEDS: insulin glargine (Lantus) pen - multi-dose SQ ONE (09:31)
[2023-11-08 09:36] LABS: ALANINE AMINOTRANSFERASE 22 U/L (12-78); ALKALINE PHOSPHATASE 57 IU/L (46-116); ASPARTATE AMINO TRANSFERASE 45 U/L (10-37); FREE T4 (FREE THYROXINE) 1.04 NG/DL (0.73-1.40); THYROID STIMULATING HORMONE 0.12 ulU/ml (0.34-4.50)
[2023-11-08 09:47] LABS: BILIRUBIN,DIRECT 0.5 MG/DL (0-0.3)
[2023-11-08] MEDS ORDERED: DOBUTamine-DoBUTrex 500mg/D5W 250 ML IV PRN (15:55)
[2023-11-08] MEDS: atorvastatin 20mg tablet PO SCH (20:29)
[2023-11-08] MEDS: metoclopramide 5 mg/ml inj IV SCH (20:30)
[2023-11-09] VITALS (31 sets, daily range): BP systolic 103–135; BP diastolic 45–86; PULSE 76–121; RESP 14–25; O2SAT 91–98
[2023-11-09 05:38] LABS: BASOPHILS % (AUTO) 0.2 % (0-1); EOSINOPHILS % (AUTO) 0 % (0-6); HEMATOCRIT 27.9 % (42.0-52.0); HEMOGLOBIN 9.1 g/dl (14.0-17.9); LYMPHOCYTES # (AUTO) 0.9 X10'3 (1.1-4.8); LYMPHOCYTES % (AUTO) 4.6 % (21-51); MEAN CORPUSCULAR HEMOGLOBIN 34.3 PG (27.0-31.0); MEAN CORPUSCULAR HGB CONC 32.7 g/dL (33.0-36.5); MEAN PLATELET VOLUME 8.9 FL (7.4-10.4); MONOCYTES # (AUTO) 1.3 X10'3 (0-0.9); MONOCYTES % (AUTO) 6.9 % (2-12); NEUTROPHILS # (AUTO) 16.8 X10'3 (1.8-7.7); NEUTROPHILS % (AUTO) 88.3 % (42-75); PLATELET COUNT 109 X10'3 (140-440); RED BLOOD COUNT 2.65 X10'6 (4.70-6.10); RED CELL DISTRIBUTION WIDTH 15.6 % (11.5-14.5); WHITE BLOOD COUNT 19.1 X10'3 (4.5-11.0)
[2023-11-09 05:43] LABS: ALBUMIN 2.7 G/DL (3.4-5.0); ANION GAP -2 (8-16); BLOOD UREA NITROGEN 26 MG/DL (7-18); BUN/CREATININE RATIO 29.2 (10.0-20.0); CALCIUM 7.7 MG/DL (8.5-10.1); CHLORIDE 102 MMOL/L (99-107); CREATININE 0.89 MG/DL (0.60-1.10); GLUCOSE 132 MG/DL (70-104); MAGNESIUM 2.4 MG/DL (1.5-2.4); POTASSIUM 4.7 MMOL/L (3.5-5.1); SODIUM 135 MMOL/L (135-145); TOTAL CARBON DIOXIDE 34.7 MMOL/L (24-32); eCRCL 59 ML/MIN; eGFR 82 ML/MIN
[2023-11-09] MEDS: magnesium hydroxide 30ml (MOM) UD suspension PO PRN (08:12)
[2023-11-09] MEDS: metoprolol tartrate 12.5mg (1/2 tablet) PO SCH (21:13)
[2023-11-09] MEDS: amiodarone 200mg tablet PO ONE (21:13)
[2023-11-10] VITALS (32 sets, daily range): BP systolic 91–127; BP diastolic 11–87; PULSE 73–114; RESP 12–26; O2SAT 93–100
[2023-11-10] MEDS ORDERED: dextrose 50%-water 50ml dispensing syringe IV PRN ×2 (00:25)
[2023-11-10] MEDS ORDERED: DEXTROSE 15 GM of carb/4 tabs (each vial/BOTTLE has 4 tablets) PO PRN ×2 (00:25)
[2023-11-10] MEDS ORDERED: glucagon, human recombinant 1mg kit SUBCUT PRN (00:25)
[2023-11-10 03:19] LABS: EOSINOPHILS % (AUTO) 0 % (0-6); HEMOGLOBIN 9.5 g/dl (14.0-17.9); LYMPHOCYTES # (AUTO) 1.1 X10'3 (1.1-4.8); MEAN CORPUSCULAR HGB CONC 32.5 g/dL (33.0-36.5); MONOCYTES # (AUTO) 1.2 X10'3 (0-0.9); MONOCYTES % (AUTO) 7.5 % (2-12)
[2023-11-10 03:20] LABS: BASOPHILS % (AUTO) 0.1 % (0-1); HEMATOCRIT 29.2 % (42.0-52.0); LYMPHOCYTES % (AUTO) 7.2 % (21-51); MEAN CORPUSCULAR HEMOGLOBIN 34.1 PG (27.0-31.0); MEAN CORPUSCULAR VOLUME 104.9 FL (78-98); MEAN PLATELET VOLUME 8.6 FL (7.4-10.4); NEUTROPHILS # (AUTO) 13.6 X10'3 (1.8-7.7); NEUTROPHILS % (AUTO) 85.2 % (42-75); PLATELET COUNT 126 X10'3 (140-440); RED BLOOD COUNT 2.78 X10'6 (4.70-6.10); WHITE BLOOD COUNT 15.9 X10'3 (4.5-11.0)
[2023-11-10 03:23] LABS: ALBUMIN 2.4 G/DL (3.4-5.0); ANION GAP -2 (8-16); BLOOD UREA NITROGEN 28 MG/DL (7-18); BUN/CREATININE RATIO 34.1 (10.0-20.0); CALCIUM 7.4 MG/DL (8.5-10.1); CHLORIDE 102 MMOL/L (99-107); CREATININE 0.82 MG/DL (0.60-1.10); GLUCOSE 123 MG/DL (70-104); MAGNESIUM 2.4 MG/DL (1.5-2.4); PHOSPHORUS 2.6 MG/DL (2.3-4.5); POTASSIUM 4.5 MMOL/L (3.5-5.1); SODIUM 135 MMOL/L (135-145); TOTAL CARBON DIOXIDE 35.1 MMOL/L (24-32); eCRCL 64 ML/MIN; eGFR 90 ML/MIN
[2023-11-10 04:06] LABS: LARGE PLATELETS FEW; NUCLEATED RED BLOOD CELLS 1 /100WBC (0-0); PLATELET ESTIMATE DECREASED; POLYCHROMASIA FEW; STOMATOCYTES FEW; TOTAL CELLS COUNTED 100
[2023-11-10] MEDS: insulin Lispro (HumaLOG) vial - multi-dose SQ SCH (07:00)
[2023-11-10] MEDS: amiodarone 200mg tablet PO SCH (07:34)
[2023-11-10] MEDS: JUVEN Smoothie Arginine/Glut./Ca2+Bmb (Juven 19.3pkt) 240ml cup PO SCH (13:00)
[2023-11-10] MEDS: insulin glargine (Lantus) pen - multi-dose SQ SCH (22:24)
[2023-11-11] VITALS (26 sets, daily range): BP systolic 97–142; BP diastolic 55–79; PULSE 72–111; RESP 12–26; TEMP 96.3–97.9; O2SAT 92–99
[2023-11-11 06:34] LABS: MAGNESIUM 2.1 MG/DL (1.5-2.4); PHOSPHORUS 3.1 MG/DL (2.3-4.5)
[2023-11-11] MEDS: potassium Cl 20 mEq SR tablet PO PRN (08:50)
[2023-11-11] MEDS: insulin Lispro (HumaLOG) vial - multi-dose SQ SCH (12:00)
[2023-11-11] MEDS: metoprolol tartrate 12.5mg (1/2 tablet) PO SCH (14:21)
[2023-11-11] MEDS: metoclopramide 5 mg/ml inj IV PRN (14:21)
[2023-11-11] MEDS: metoclopramide 5 mg/ml inj IV SCH (14:25)
[2023-11-11] MEDS: potassium Cl 20 mEq SR tablet PO SCH (17:21)
[2023-11-11 20:19] LABS: ALBUMIN 2.3 G/DL (3.4-5.0); ANION GAP 3 (8-16); BLOOD UREA NITROGEN 29 MG/DL (7-18); BUN/CREATININE RATIO 35.8 (10.0-20.0); CALCIUM 7.7 MG/DL (8.5-10.1); CHLORIDE 101 MMOL/L (99-107); CREATININE 0.81 MG/DL (0.60-1.10); GLUCOSE 84 MG/DL (70-104); POTASSIUM 3.7 MMOL/L (3.5-5.1); SODIUM 137 MMOL/L (135-145); eCRCL 65 ML/MIN; eGFR > 90 ML/MIN
[2023-11-11 20:21] LABS: BASOPHILS # (AUTO) 0.1 X10'3 (0-0.2); EOSINOPHILS % (AUTO) 0.2 % (0-6); LYMPHOCYTES # (AUTO) 1.7 X10'3 (1.1-4.8); MEAN CORPUSCULAR VOLUME 107.5 FL (78-98); MEAN PLATELET VOLUME 8.7 FL (7.4-10.4); NEUTROPHILS # (AUTO) 10.4 X10'3 (1.8-7.7); RED BLOOD COUNT 2.98 X10'6 (4.70-6.10)
[2023-11-11 20:23] LABS: BASOPHILS % (AUTO) 0.6 % (0-1); HEMOGLOBIN 10.2 g/dl (14.0-17.9); LYMPHOCYTES % (AUTO) 12.6 % (21-51); MEAN CORPUSCULAR HEMOGLOBIN 34.4 PG (27.0-31.0); MONOCYTES % (AUTO) 7.7 % (2-12); NEUTROPHILS % (AUTO) 78.9 % (42-75); PLATELET COUNT 158 X10'3 (140-440); RED CELL DISTRIBUTION WIDTH 15.5 % (11.5-14.5); WHITE BLOOD COUNT 13.2 X10'3 (4.5-11.0)
[2023-11-11] MEDS: iron polysaccharide complex 150mg capsule PO SCH (21:11)
[2023-11-11] MEDS: furosemide 20MG tablet PO SCH (21:11)
[2023-11-11 21:42] LABS: NUCLEATED RED BLOOD CELLS 1 /100WBC (0-0); TOTAL CELLS COUNTED 100
[2023-11-11 21:43] LABS: PLATELET ESTIMATE NORMAL
[2023-11-12] VITALS (13 sets, daily range): BP systolic 113–123; BP diastolic 45–75; PULSE 75–109; RESP 17–20; TEMP 96.5–96.8; O2SAT 97–100
[2023-11-12 06:20] LABS: MAGNESIUM 1.8 MG/DL (1.5-2.4); PHOSPHORUS 3.8 MG/DL (2.3-4.5)
[2023-11-12] MEDS: apixaban 2.5mg tablet PO SCH (09:25)
[2023-11-12] MEDS: calcium carbonate 500mg tablet PO SCH (17:35)
[2023-11-12] MEDS: gabapentin 300mg capsule PO SCH (21:44)
[2023-11-12] MEDS: metoprolol succinate 25mg (24-HOUR) SR. Tablet PO SCH (21:44)
[2023-11-13] VITALS (12 sets, daily range): BP systolic 94–139; BP diastolic 46–65; PULSE 80–101; RESP 12–24; TEMP 96.8–98.4; O2SAT 93–99
[2023-11-13 07:10] LABS: ALBUMIN 2.2 G/DL (3.4-5.0); ANION GAP 5 (8-16); BLOOD UREA NITROGEN 25 MG/DL (7-18); BUN/CREATININE RATIO 27.5 (10.0-20.0); CALCIUM 8.4 MG/DL (8.5-10.1); CHLORIDE 100 MMOL/L (99-107); CREATININE 0.91 MG/DL (0.60-1.10); GLUCOSE 120 MG/DL (70-104); MAGNESIUM 1.6 MG/DL (1.5-2.4); PHOSPHORUS 3.9 MG/DL (2.3-4.5); POTASSIUM 3.5 MMOL/L (3.5-5.1); SODIUM 136 MMOL/L (135-145); TOTAL CARBON DIOXIDE 31.4 MMOL/L (24-32); eCRCL 57 ML/MIN; eGFR 80 ML/MIN
[2023-11-13 07:16] LABS: BASOPHILS % (AUTO) 0.2 % (0-1); EOSINOPHILS # (AUTO) 0.1 X10'3 (0-0.9); EOSINOPHILS % (AUTO) 0.8 % (0-6); HEMATOCRIT 32.5 % (42.0-52.0); HEMOGLOBIN 10.8 g/dl (14.0-17.9); LYMPHOCYTES # (AUTO) 1.3 X10'3 (1.1-4.8); LYMPHOCYTES % (AUTO) 11.5 % (21-51); MEAN CORPUSCULAR HEMOGLOBIN 35.1 PG (27.0-31.0); MEAN CORPUSCULAR VOLUME 106.3 FL (78-98); MEAN PLATELET VOLUME 8.1 FL (7.4-10.4); MONOCYTES # (AUTO) 0.9 X10'3 (0-0.9); MONOCYTES % (AUTO) 7.8 % (2-12); NEUTROPHILS # (AUTO) 8.9 X10'3 (1.8-7.7); NEUTROPHILS % (AUTO) 79.7 % (42-75); PLATELET COUNT 197 X10'3 (140-440); RED BLOOD COUNT 3.06 X10'6 (4.70-6.10); RED CELL DISTRIBUTION WIDTH 15.1 % (11.5-14.5); WHITE BLOOD COUNT 11.2 X10'3 (4.5-11.0)
[2023-11-13] MEDS: spironolactone 25 MG tablet PO SCH (08:30)
[2023-11-13] MEDS ORDERED: LIDOcaine 1% (10mg/ml)w/preservative inj. 20ml MDV IJ STA (19:28)
[2023-11-13] MEDS: mupirocin 2% nasal ointment 1gm UD NS ONE (21:20)
[2023-11-13] MEDS: LIDOcaine 1% 30ml preserv. free vial IJ STA (21:21)
[2023-11-13] MEDS: mupirocin 2% ointment 22GM TP SCH (21:22)
[2023-11-13] MEDS: apixaban 2.5mg tablet PO SCH (21:23)
[2023-11-14 09:34] VITALS: BP_SYST 148
[2023-11-14 11:16] VITALS: PULSE 90; RESP 17; O2SAT 97
[2023-11-14 11:20] VITALS: PULSE 90; RESP 17; O2SAT 97
== END 2023-11-14 12:00 | DRG 219 ==
LOC: PAS IN 05:30 → CICU 2S 10:58 → PCU 3S 11-11 20:05
PROVIDERS: ADMIT Thoracic Surgery (Cardiothoracic Vascular Surgery); ATTEND Thoracic Surgery (Cardiothoracic Vascular Surgery)
PROC: 02RF08Z Replacement of Aortic Valve with Zooplastic Tissue, Open Approach (ICD-10-PCS; 2023-11-06)
PROC: 021209W Bypass Coronary Artery, Three Arteries from Aorta with Autologous Venous Tissue, Open Approach (ICD-10-PCS; 2023-11-06)
PROC: 06BQ4ZZ Excision of Left Saphenous Vein, Percutaneous Endoscopic Approach (ICD-10-PCS; 2023-11-06)
PROC: 02100Z9 Bypass Coronary Artery, One Artery from Left Internal Mammary, Open Approach (ICD-10-PCS; 2023-11-06)
PROC: 03HY32Z Insertion of Monitoring Device into Upper Artery, Percutaneous Approach (ICD-10-PCS; 2023-11-06)
PROC: 5A1221Z Performance of Cardiac Output, Continuous (ICD-10-PCS; 2023-11-06)
PROC: B24BZZ4 Ultrasonography of Heart with Aorta, Transesophageal (ICD-10-PCS; 2023-11-06)
PROC: 30233R1 Transfusion of Nonautologous Platelets into Peripheral Vein, Percutaneous Approach (ICD-10-PCS; 2023-11-06)
PROC: 02L70CK Occlusion of Left Atrial Appendage with Extraluminal Device, Open Approach (ICD-10-PCS; principal; 2023-11-06 07:41)
PROC: 5A09357 Assistance with Respiratory Ventilation, Less than 24 Consecutive Hours, Continuous Positive Airway Pressure (ICD-10-PCS; 2023-11-07)
PROC: 5A09357 Assistance with Respiratory Ventilation, Less than 24 Consecutive Hours, Continuous Positive Airway Pressure (ICD-10-PCS; 2023-11-08)
PROC: 5A09357 Assistance with Respiratory Ventilation, Less than 24 Consecutive Hours, Continuous Positive Airway Pressure (ICD-10-PCS; 2023-11-09)
PROC: 5A09357 Assistance with Respiratory Ventilation, Less than 24 Consecutive Hours, Continuous Positive Airway Pressure (ICD-10-PCS; 2023-11-10)
PROC: 5A09357 Assistance with Respiratory Ventilation, Less than 24 Consecutive Hours, Continuous Positive Airway Pressure (ICD-10-PCS; 2023-11-11)
PROC: 5A09357 Assistance with Respiratory Ventilation, Less than 24 Consecutive Hours, Continuous Positive Airway Pressure (ICD-10-PCS; 2023-11-12)
PROC: 0JQN0ZZ Repair Right Lower Leg Subcutaneous Tissue and Fascia, Open Approach (ICD-10-PCS; 2023-11-13)
PROC: 0JBN0ZZ Excision of Right Lower Leg Subcutaneous Tissue and Fascia, Open Approach (ICD-10-PCS; 2023-11-13)
DX: I35.0 Nonrheumatic aortic (valve) stenosis (principal); N17.0 Acute kidney failure with tubular necrosis; I50.42 Chronic combined systolic (congestive) and diastolic (congestive) heart failure; I48.19 Other persistent atrial fibrillation; I96 Gangrene, not elsewhere classified; Z68.41 Body mass index [BMI] 40.0-44.9, adult; I25.10 Atherosclerotic heart disease of native coronary artery without angina pectoris; G47.33 Obstructive sleep apnea (adult) (pediatric); E03.9 Hypothyroidism, unspecified; M06.9 Rheumatoid arthritis, unspecified; D72.829 Elevated white blood cell count, unspecified; D64.9 Anemia, unspecified; E66.01 Morbid (severe) obesity due to excess calories; G62.9 Polyneuropathy, unspecified; I87.2 Venous insufficiency (chronic) (peripheral); S81.811A Laceration without foreign body, right lower leg, initial encounter; X58.XXXA Exposure to other specified factors, initial encounter; Y93.89 Activity, other specified; Z99.81 Dependence on supplemental oxygen; Y92.89 Other specified places as the place of occurrence of the external cause; Z86.73 Personal history of transient ischemic attack (TIA), and cerebral infarction without residual deficits; Y99.8 Other external cause status; Z79.01 Long term (current) use of anticoagulants
CPT/HCPCS: 36415; 36430; 36600; 71045; 80048; 80053; 80076; 81001; 82310; 82330; 82435; 82607; 82803; 82947; 82948; 83036; 83605; 83735; 84100; 84132; 84295; 84439; 84443; 85007; 85018; 85025; 85384; 85610; 85730; 86885; 86900; 86901; 86920; 87070; 87081; 88300; 93005; 93312; 93880; 93970; 94002; 94003; 94640; 94664; 94668; 94760; 97116; 97161; 97530; A4333; A4615; A4618; A5200; A6212; A6213; A6250; A6253; A6258; A6260; A6402; A6449; A7000; A7015; A9900; C1751; C9290; G0378; J0131; J0171; J0282; J0461; J0610; J0690; J1100; J1170; J1250; J1265; J1644; J1720; J1815; J1940; J2060; J2150; J2250; J2370; J2405; J2440; J2704; J2720; J2765; J2920; J2930; J3370; J3475; J3480; J3490; J7030; J7040; J7050; J7120; J7512; P9035; P9045; P9047